=== PATIENT | male | born 1970 | race Caucasian/White ===

== ENCOUNTER 2019-09-07 10:52 | Day surgery (SDC) | payer OTHER, BC ==
[2019-09-07] MEDS ORDERED: Simvastatin40 MG PO (11:13)
[2019-09-07] MEDS ORDERED: CHLO25B PO (11:13)
[2019-09-07 11:39] LABS: BASOPHILS ABSOLUTE AUTO 0.05 K/mm3 (0.00-0.23); BASOPHILS PERCENT AUTO 1 % (0-2); EOSINOPHILS ABSOLUTE AUTO 0.05 K/mm3 (0.00-0.68); EOSINOPHILS PERCENT AUTO 1 % (0-6); Hematocrit 47.4 % (37.0-53.0); Hemoglobin 16.3 g/dL (13.5-17.5); IMMATURE GRAN ABSOLUTE AUTO 0.04 K/mm3 (0.00-0.10); IMMATURE GRAN PERCENT AUTO 0 % (0-1); LYMPHOCYTES ABSOLUTE AUTO 1.63 K/mm3 (0.84-5.20); LYMPHOCYTES PERCENT AUTO 18 % (21-46); MONOCYTES ABSOLUTE AUTO 0.96 K/mm3 (0.16-1.47); MONOCYTES PERCENT AUTO 10 % (4-13); Mean Corpuscular HGB 30.4 pg (26.0-34.0); Mean Corpuscular HGB Conc 34.4 g/dL (31.5-36.5); Mean Corpuscular Volume 88 fL (80-100); Mean Platelet Volume 9.5 fL (9.1-12.4); NEUTROPHILS ABSOLUTE AUTO 6.56 K/mm3 (1.96-9.15); NEUTROPHILS PERCENT AUTO 71 % (41-73); Platelet Count 244 K/mm3 (150-400); RDW Coefficient Variation 12.6 % (11.7-14.2); RDW Standard Deviation 40.9 fL (35.1-46.3); Red Blood Cell Count 5.36 M/mm3 (4.30-5.90); White Blood Cell Count 9.29 K/mm3 (4.00-11.30)
[2019-09-07 11:55] LABS: International Normalized Ratio 1.02; Prothrombin Time Results 10.8 Sec (9.7-11.5)
[2019-09-07 12:22] LABS: Anion Gap 9 mmol/L (6-16); Blood Urea Nitrogen 22 mg/dL (8-24); CO2, Blood 27 mmol/L (21-32); Calcium, Blood 9.4 mg/dL (8.5-10.1); Chloride, Blood 99 mmol/L (98-108); Glomerular Filtration Rate >60 (60-); Glucose, Blood 112 mg/dL (70-99); Sodium, Blood 135 mmol/L (136-145)
== END 2019-09-07 22:43 | disposition home or self-care (01) ==
LOC: PRE 10:52 → EKG 10:52
PROVIDERS: Orthopaedic Surgery
DX: M16.11 Unilateral primary osteoarthritis, right hip (principal); I45.10 Unspecified right bundle-branch block; Z01.818 Encounter for other preprocedural examination
CPT/HCPCS: 36415; 80048; 85025; 85610; 85730; 93005; 93010

== ENCOUNTER 2019-09-20 12:52 | Inpatient (IN) | payer OTHER ==
[~2019-09-20] VITALS: Ht 193 cm; Wt 131.1 kg
[~2019-09-20 12:52] MED LIST: CHLO25B PO; Simvastatin40 MG PO
--- NOTE | 2019-09-21 12:31 | NUR ---
Ambulatory in Day Surgery History, Chart, Medications and Allergies reviewed before start of procedure.Lungs clear T/O to Auscultation. Patient confirms NPO status and agrees with scheduled surgery. Patient reports completing Chlorhexadine shower X2 prior to admission to hospital.Surgical site prepped with 2% Chlorhexidine cloth wipe.PT DID 5 DAY TREATMENT FOR MSSA. NOXYN AND PERIDEX DONE PER PROTOCOL. WHEN CLIPPING RIGHT GROIN/HIP THE CLIPPERS NICKED PT IN GROIN. SMALL ABRASION NOTED. DR. MAIN INFORMED.
--- NOTE | 2019-09-21 17:44 | NUR ---
SHIFT SUMMARY PT A&OX4, VSS, S/P R CORI, AQUACEL CDI, POLAR KELLY ON. PAIN MANAGED PER EMAR. AMANDEEP PO, DENIES N&V AT THIS TIME; ZOFRAN GIVEN 1X. AT BEDSIDE. WILL REPORT TO ONCOMING NOC RN.
[2019-09-22 04:51] LABS: BASOPHILS ABSOLUTE AUTO 0.02 K/mm3 (0.00-0.23); BASOPHILS PERCENT AUTO 0 % (0-2); EOSINOPHILS ABSOLUTE AUTO 0.09 K/mm3 (0.00-0.68); EOSINOPHILS PERCENT AUTO 1 % (0-6); Hematocrit 34.9 % (37.0-53.0); Hemoglobin 11.5 g/dL (13.5-17.5); IMMATURE GRAN ABSOLUTE AUTO 0.04 K/mm3 (0.00-0.10); IMMATURE GRAN PERCENT AUTO 0 % (0-1); LYMPHOCYTES ABSOLUTE AUTO 1.39 K/mm3 (0.84-5.20); LYMPHOCYTES PERCENT AUTO 14 % (21-46); MONOCYTES ABSOLUTE AUTO 0.88 K/mm3 (0.16-1.47); MONOCYTES PERCENT AUTO 9 % (4-13); Mean Corpuscular HGB 30.1 pg (26.0-34.0); Mean Corpuscular Volume 91 fL (80-100); Mean Platelet Volume 9.7 fL (9.1-12.4); NEUTROPHILS ABSOLUTE AUTO 7.55 K/mm3 (1.96-9.15); NEUTROPHILS PERCENT AUTO 76 % (41-73); Platelet Count 180 K/mm3 (150-400); RDW Coefficient Variation 13.1 % (11.7-14.2); RDW Standard Deviation 43.9 fL (35.1-46.3); Red Blood Cell Count 3.82 M/mm3 (4.30-5.90); White Blood Cell Count 9.97 K/mm3 (4.00-11.30)
[2019-09-22 05:11] LABS: Anion Gap 5 mmol/L (6-16); Blood Urea Nitrogen 18 mg/dL (8-24); Bun/Creatinine Ratio 18.5 (12.0-20.0); CO2, Blood 29 mmol/L (21-32); Calcium, Blood 8.1 mg/dL (8.5-10.1); Chloride, Blood 105 mmol/L (98-108); Creatinine, Blood 0.97 mg/dL (0.60-1.20); Glomerular Filtration Rate >60 (60-); Glucose, Blood 103 mg/dL (70-99); Potassium, Blood 3.3 mmol/L (3.5-5.5); Sodium, Blood 139 mmol/L (136-145)
--- NOTE | 2019-09-22 06:14 | NUR ---
SHIFT SUMMARY: MARITZA IS POD1 FOR A RIGHT TOTAL HIP REPLACEMENT. HE IS A&OX4, TOLERATING PO INTAKE WELL AND URINATING WITHOUT DIFFICULTY. HE HAS AMBULATED WITH CRUTCHES TO THE BATHROOM THRICE THIS SHIFT. SENSATION INTACT, BRISK CAPILLARY REFILL, AQUACELL C/D&I. MIKE, PAS AND POLAR PACK IN PLACE. HE REPORTS PAIN CONTROL WITH ORAL PAIN MEDICATION. HE IS ABLE TO MAKE HIS NEEDS KNOWN. HE IS SALINE LOCKED, LYING IN BED WITH HIS CALL LIGHT IN REACH.
[2019-09-22] MEDS ORDERED: ASPI81CH PO (08:00)
[2019-09-22] MEDS ORDERED: Percocet 5-3251 EACH PO (08:00)
[2019-09-22] MEDS ORDERED: Celebrex200 MG PO (08:01)
--- NOTE | 2019-09-22 12:54 | NUR ---
1250 discharged to home
== END 2019-09-22 13:00 | disposition home or self-care (01) | DRG 470 ==
LOC: SURS 09-21 12:07 → PRE IP 09-21 12:15 → SURS 09-21 15:55 → ENPENDDIS 09-22 08:08 → SURS 09-22 13:00
PROVIDERS: ADMIT Orthopaedic Surgery
PROC: 0SR904A Replacement of Right Hip Joint with Ceramic on Polyethylene Synthetic Substitute, Uncemented, Open Approach (ICD-10-PCS; principal; 2019-09-21 13:30)
DX: M16.11 Unilateral primary osteoarthritis, right hip (principal); I10 Essential (primary) hypertension
CPT/HCPCS: 36415; 72170; 80048; 85025; 86850; 86900; 86901; 88300; 97110; 97116; 97162; C1776; J0171; J0690; J0735; J1885; J2250; J2405; J2704; J2795; J7120